=== PATIENT | female | born 1995 | race Caucasian/White ===

== ENCOUNTER 2019-11-02 06:07 | Day surgery (SDC) | payer MEDICAID, SELFPAY ==
[2019-11-02] VITALS (11 sets, daily range): BP systolic 90–115; BP diastolic 43–67; PULSE 75–82; RESP 14–19; TEMP 36.2–36.7; O2SAT 96–99
--- NOTE | 2019-11-02 06:27 | ROE_ITS ---
Date of service: 11/02/19 Time of Service: 08:35 Operative Note Operative Note DATE OF PROCEDURE: 11/02/19 PRE-OP DIAGNOSIS: Biliary Dyskinesia POST-OP DIAGNOSIS: same PROCEDURE: Laparoscoppic Cholecystectomy SURGEON: Shruthi Lennon DIRECT SUPPORT STAFF MEMBER: Dana Hernandez ANESTHESIA: GETA (ASA 2/ Ramses Severino CRNA), regional (ES block on the right), local (Lidocaine 1% and Marcaine 0.5% with epi) and other ESTIMATED BLOOD LOSS: 25 PATHOLOGY: other (Gallbladder) COMPLICATIONS: None Patient was transported to: PACU Patient's condition: stable Indications: Mrs. Martin is a pleasant 23-year-old female who is 9 months and is still breast-feeding who comes in to discuss possible laparoscopic cholecystectomy. She tells me that while she started to have abdominal pain in the right upper quadrant with eating. After delivery of the pain persisted and she had a HIDA scan done which showed an ejection fracture of 17%. She tells me that she feels like she has contractions in the upper abdomen that radiated to the back. At this point it does not seem to matter what she eats she gets pain and sometimes also has nausea and vomiting. She has not had any fevers or chills. Risks, benefits, complications were reviewed with the patient in the office. Complications include but are not limited to bleeding, infection, injury to stomach, small bowel and large bowel, injury to the pancreas, injury to the common bile duct necessitating drainage and referral to tertiary center for repair, bile leak, adverse reactions to the medications, complications of intubation including a sore throat or injury to the uvula, MD, stroke and even . Questions were entertained and answered to her satisfaction and she wished to proceed. No guarantees were given or implied. Findings: Normal appearing Gallbladder Procedure Description: After informed consent was obtained the patient was taken to the PACU and anesthesia performed a Right erector spine block for postoperative comfort. Once the block was in place the patient was brought to the operating room, placed in a supine position and monitors were applied. SCDs were applied to her lower extremities and she was placed under general anesthesia and intubated without difficulty. Once intubated a Hardy catheter was placed in a standard sterile fashion. Her abdomen was then prepped and draped in a sterile fashion using ChloraPrep. At this point a timeout was done and the patient's name, date of , procedure type, allergies to medications, metal in her body, antibiotic and DVT prophylaxis were reviewed, and fire risk was assessed. At this point half percent Marcaine with epi mixed 50/50 with 1% Lidocaine was injected just above the umbilicus into the dermis and subcutaneous tissue. A 5 mm incision was made with an 11 blade. The skin next to the incision was grasped with penetrating towel clamps and while pulling up on the skin a 5 mm port was placed under direct visualization. The port went in easily. The abdomen was insuflated and then 3 more ports were placed. Local was then injected in the subxiphoid area and the RUQ. A 12 mm port was placed in the subxiphoid area and two 5 mm ports were placed in the right upper quadrant. The liver was inspected and looked normal. The patient's bed was then turned to the left and her head was brought up. The gallbladder was grasped at the body and pushed towards the right shoulder, this allowed me to visualize the neck of the gallbladder. The neck was grasped and pulled towards the right flank and down allowing me to visualize the lymph node. Using a [place] dissector with cautery the lymph node was gently dissected away from the tissues and the fatty tissue was also dissected away. The cystic duct was identified it was normal in size. The duct was dissected 360 degrees using the [place] dissector in order for me to visualize its entrance into the gallbladder. Liver was noted behind it. There were no other structures right behind. Critical view was achieved. 3 clips were placed one proximal and 2 distal and the cystic duct was cut. The cystic artery was then identified and dissected 360 degrees. It was located just medial to the cystic duct. It was visualized going into the gallbladder. Once dissected 3 more clips were placed one proximal and 2 distal and the artery was cut. Using the hook dissector the gallbladder was then dissected away from the liver bed and placed into an Endo Catch bag. Because it was distended with bile a needle was placed through the top of the bag and the bile was suctioned out. This collapsed the Gallbladder enough so that I could easily pull in th rough the 12 mm port site. The 12 mm port was placed back into the abdomen under direct visualization. The liver bed was inspected and a small amount of bleeding was noted at the superior portion of the Gallbladder bed. This was easily cauterized making sure to stay away from bowel and stomach. The clipps were identified. There was no bile leak noted. At this point 20 cc of the local anesthetic mixture was injected above the liver to help with postoperative right shoulder pain. The 12 mm and the 2 right upper quadrant ports were removed under direct visualization and no bleeding was noted from the fascia. The abdomen was deflated completely and lastly the umbilical port was removed. The skin was cleaned and the incisions were closed with 4-0 Vicryl. The skin was dried and skin affix was applied over the closed incisions. Needle and sponge counts were correct at the end of the case. The Hardy catheter was removed. At this point the patient was woken up, extubated and taken back to recovery in stable condition. There were no immediate complications.
--- NOTE | 2019-11-02 06:28 | W.UPDATEHP ---
Date of service: 11/02/19 Time of Service: 06:28 Updated H&P Refer to Most Recent Clinic Note/H&P Dated: 10/14/19 H&P was reviewed,patient examined No change has occured in patient's condition since last H&P completed
--- NOTE | 2019-11-02 06:30 | W.PM.DSUDISC ---
Discharge Plan Disposition Patient Disposition: HOME Condition: Good Discharge Details Reason For Visit: Biliary Dyskinesia Attending Provider: Shruthi Lennon Primary Care Provider: Taya Cowan Home Meds and New Rx's Prescriptions: Continued loratadine [Allergy Relief (loratadine)] 10 mg tablet 10 mg PO DAILY RF: 0 omeprazole 40 mg capsule,delayed release(DR/EC) 40 mg PO DAILY RF: 0 acetaminophen [Tylenol Extra Strength] 500 mg tablet 500 mg PO Q4H PRNRF: 0 ibuprofen 400 mg Tablet 400 mg PO Q6H PRNRF: 0 Discharge Instructions Instructions: Laparoscopic Cholecystectomy (DC) Additional Instructions: Activity at Home after surgery: 1. Make sure you walk outside at least 4 times per day 2. You should be able to climb a flight of stairs 3. No driving while in pain or taking pain medications 4. No strenuous activity or heavy lifting for 2 weeks (laparoscopic surgery) Diet, Nutrition, & wound healin. Avoid alcohol until after you are recovered from your surgery 2. Make sure to eat plenty of lean protein (meat, fish, eggs, cottage cheese, beans) 3. Eat a variety of fruits and vegetables. Eat plenty of high fiber foods to avoid constipation. 4. Drink plenty of liquids to stay hydrated and avoid constipation Pain Medications: 1. Tylenol 650 mg every 6 hours or Tylenol 1000 mg every 8 hours 2. Ibuprofen 400 mg to 600 mg every 6 hours You can alternate between the Tyelnol and Ibuprofen. For example take tylenol and 3 hours later take ibuprofen, 3 hours after that you can take tylenol again, etc) Make sure to not exceed 4000 mg of Tylenol or Ibuprofen in a 24 hour period Take Ibuprofen with food 3. If a narcotic has been prescribed take as directed only for breakthrough pain For Constipation: 1. Take Milk of Magnesia or MiraLax as needed for constipation Other: 1. You may shower daily. Do not scrub the incisions 2. Do not soak the incisions for 1 week 3. You may alternate ice and heat as needed for pain and swelling Wound Care: 1. Keep the incisions clean and dry 2. No dressing is needed. There is a glue over the incisions Please call our office if you develop: 1. Fevers >101.5 2. Nausea or Vomiting 3. Worsening pain 4. Redness and thick discharge from the wounds If after hours please call the Hospital at and ask to speak to the on-call surgeon Referrals: Shruthi Lennon MD [ [facility] STAFF PHYSICIAN] - 11/15/19 1:00 pm Activity:: No lifting, pulling or pushing >20 lb x 2 weeks Diet:: Low fat Discharge Orders Discharge Orders: Discharge Order (Routine); Ordered 11/02/19 Ordered By: Shruthi Lennon DS: Diagnosis Discharge Diagnosis (1) Biliary dyskinesia: Status: Acute
[2019-11-02] MEDS: Lactated Ringers 1,000 ML 80 ML IV (06:45)
[2019-11-02] MEDS: Acetaminophen 500 MG TAB 1000 MG PO (06:54)
[2019-11-02] MEDS: Bupivacaine 0.25% Pres-Free 30 ML VIAL (07:25)
[2019-11-02] MEDS: Bupivacaine LIPOSOME/PF 133 MG/10 ML VIAL IJ (07:25)
--- NOTE | 2019-11-02 08:25 | GB_PTH ---
PATIENT: JASMINE FENTON LOC: [facility] U#:[id number] AGE/SX: 23/F ROOM: RE11/02/[address]: Shruthi Lennon MD : 1995 BED: DIS: 11/02/2019 SPEC #: [id number] RECD: 11/02/19 12:14 STATUS: WOO REQ #: [id number] GAMA: 11/02/19 08:[address]: Shruthi Lennon DEPT: Surgical Specimen RECD BY: Ladi Escobar ENTERED: 11/02/19 12:14 SP TYPE: GB OTHR DR: Taya Cowan Tissues: 1 - GALLBLADDER Procedures: GROSS AND MICRO LEVEL 3 Comments: [id number]
[2019-11-02] MEDS: oxyCODONE 5 MG TAB PO (11:54)
== END 2019-11-02 13:22 | disposition home or self-care (01) ==
PROVIDERS: PCP Internal Medicine; Visit Provider Surgery
PROC: 0FT44ZZ Resection of Gallbladder, Percutaneous Endoscopic Approach (ICD-10-PCS; CPT 47562; principal; 2019-11-02 07:30)
DX: K82.8 Other specified diseases of gallbladder (principal); K81.1 Chronic cholecystitis; K21.9 Gastro-esophageal reflux disease without esophagitis; G89.18 Other acute postprocedural pain
CPT/HCPCS: 47562; 76942; 81025; 88304; J1100; J1885; J2250; J2405; J3475